=== PATIENT | female | born 1950 | race Caucasian/White ===

== ENCOUNTER 2017-01-18 11:24 | Emergency (ER) | payer OTHER ==
[~2017-01-18] VITALS: Ht 157.5 cm; Wt 50.5 kg
[2017-01-18 11:28] VITALS: Ht 157.5 cm; Wt 50.5 kg
[2017-01-18] MEDS ORDERED: SOD CHLORIDE 0.9% 1,000 ML IV STA (12:49)
[2017-01-18] MEDS ORDERED: ONDANSETRON 4 MG INJ IV STA (12:49)
[2017-01-18 12:54] LABS: WHITE BLOOD COUNT 6.3 10^3/ul (4.8-10.8)
[2017-01-18 12:55] LABS: BASOPHILS % 0.3 % (0.0-2.0); EOSINOPHILS % 0.5 % (0.0-7.0); HEMATOCRIT 42.2 % (37.0-47.0); HEMOGLOBIN 13.8 g/dl (12.0-16.0); LYMPHOCYTES # 1.7 10^3/ul (0.8-2.9); LYMPHOCYTES % 27.5 % (15.0-51.0); MEAN CORPUSCULAR HEMOGLOBIN 28.4 pg (29.0-33.0); MEAN CORPUSCULAR HGB CONC 32.7 g/dl (32.0-37.0); MEAN CORPUSCULAR VOLUME 86.8 fl (82.0-101.0); MEAN PLATELET VOLUME 9.2 fl (7.4-10.4); MONOCYTE # 0.5 10^3/ul (0.3-0.9); MONOCYTES % 7.7 % (0.0-11.0); NEUTROPHILS % 63.5 % (39.0-77.0); PLATELET COUNT 364 10^3/UL (140-415); RED BLOOD COUNT 4.86 10^6/ul (4.20-5.40); RED CELL DISTRIBUTION WIDTH 12.5 % (11.5-14.5)
[2017-01-18] MEDS ORDERED: metroNIDAZOLE (5 MG/ML) IV SYG IV* ONE (13:00)
[2017-01-18 13:10] LABS: ANION GAP 19 (8-16); BLOOD UREA NITROGEN 17 mg/dl (7-20); CALCIUM 9.8 mg/dl (8.4-10.2); CARBON DIOXIDE 29 mmol/L (21-31); CHLORIDE 100 mmol/L (97-110); CREATININE 0.65 mg/dl (0.44-1.00); GLUCOSE 92 mg/dl (70-220); POTASSIUM 3.8 mmol/L (3.5-5.1); SODIUM 144 mmol/L (135-144)
[2017-01-18 13:13] LABS: INR 1.01; PROTIME 13.3 Sec (12.2-14.2)
[2017-01-18 13:14] LABS: PARTIAL THROMBOPLASTIN TIME 28.7 Sec (25.0-35.0)
[2017-01-18 13:23] LABS: TROPONIN-I < 0.012 ng/ml (0.00-0.12)
--- NOTE | 2017-01-18 13:38 | RADRPT ---
PROCEDURE: XR Chest 1 View. CLINICAL INDICATION: Shortness of breath, possible stroke. TECHNIQUE: AP view of the chest was obtained. COMPARISON: None. FINDINGS: The heart size is within normal limits. Calcified atherosclerosis is noted in the aorta. The lungs are hyperexpanded. No consolidations are identified. No pneumothorax is seen. Osseous structures a re intact. IMPRESSION: Calcified atherosclerosis in the aorta. Hyperexpanded, clear lungs. RPTAT: AA .Kin Curry MD, MD Date Time Electronically viewed and signed by .Kin Curry MD, on 01/18/2017 13:38 .P/
--- NOTE | 2017-01-18 13:43 | RADRPT ---
PROCEDURE: CT brain without contrast CLINICAL INDICATION: Possible stroke, dizziness TECHNIQUE: CT of the brain without contrast performed on a multidetector CT scanner, with multiplan ar reformats. One or more of the following dose reduction techniques were used: Automated exposure control, adjustment in mA and / or kV according to patient size, use of iterative reconstructive phani hnique. CTDIvol = 45 mGy; DLP = 630 mGy-cm. COMPARISON: None available FINDINGS: No acute intracranial hemorrhage is identified. No extra-axial fluid collection is seen. There is no mass effect. No midline shift is identified. The ventricles and sulci are within normal limits for size and configuration. There are mild areas of hypodensity in the periventricular - deep white matter which are nonspecific but suggestive of chronic small vessel ischemic changes. Bradford-white differentiation appears preser andrei. Atherosclerotic calcifications of the intracranial internal carotid arteries are noted. Calvarium and skull base are intact. There is left frontal, extensive left ethmoid air cell opacifi cation and partial opacification of the visualized left maxillary sinus.. IMPRESSION: 1. No acute intracranial pathology identified. Consider further evaluation with MRI as clinically indicated. 2. Mild chronic small vessel ischemic changes. RPTAT: VV .New Garibay MD, Date Time Electronically viewed and signed by .New Garibay MD, on 01/18/2017 13:42 .O/
[2017-01-18 14:00] VITALS: BP 123/68; PULSE 79; RESP 20; TEMP 98.3
[2017-01-18] MEDS ORDERED: MECL12.574 PO (14:07)
[2017-01-18 14:11] LABS: ADD UMIC NO; UR ASCORBIC ACID NEGATIVE (NEGATIVE); UR BILIRUBIN (Dip) NEGATIVE (NEGATIVE); UR BLOOD (Dip) NEGATIVE (NEGATIVE); UR CLARITY CLEAR (CLEAR); UR COLOR YELLOW (YELLOW); UR GLUCOSE (Dip) NEGATIVE (NEGATIVE); UR KETONES (Dip) 1+ mg/dL (NEGATIVE); UR LEUKOCYTE ESTERASE (Dip) NEGATIVE Leu/ul (NEGATIVE); UR NITRITE (Dip) NEGATIVE (NEGATIVE); UR SPECIFIC GRAVITY (Dip) 1.016 (1.003-1.030); UR TOTAL PROTEIN (Dip) NEGATIVE (NEGATIVE); UR UROBILINOGEN (Dip) NEGATIVE (NEGATIVE)
--- NOTE | 2017-01-18 14:11 | ERD ---
ER Documentation Chief Complaint Date/Time DATE: 01/18/17 TIME: 14:10 Chief Complaint Complains of dizziness since last evening ROS All systems reviewed and are negative except as per history of present illness. Medications Home Meds Active Scripts Meclizine Hcl* (Antivert*) 12.5 Mg Tab, 25 MG PO Q6H Y for DIZZINESS, #20 TAB Prov:LAURIE MCFADDEN MD 01/18/17 Allergies Allergies: Coded Allergies: No Known Allergy (Unverified , 02/25/14) PMhx/Soc Medical and Surgical Hx: pt denies Medical Hx Hx Psychiatric Problems: No Hx Miscellaneous Medical Probl: No Hx Alcohol Use: No Hx Substance Use: No Hx Tobacco Use: No Smoking Status: Never smoker Physical Exam Vitals Vital Signs Date Time Temp Pulse Resp B/P Pulse Ox O2 Delivery O2 Flow Rate FiO2 01/18/17 14:00 98.3 79 20 123/68 99 Room Air 01/18/17 13:10 Nasal Cannula 01/18/17 11:28 98.3 77 20 133/65 98 Physical Exam Const: [] Head: Atraumatic Eyes: Normal Conjunctiva ENT: Normal External Ears, Nose and Mouth. Neck: Full range of motion..~ No meningismus. Resp: Clear to auscultation bilaterally Cardio: Regular rate and rhythm, no murmurs Abd: Soft, non tender, non distended. Normal bowel sounds Skin: No petechiae or rashes Back: No midline or flank tenderness Ext: No cyanosis, or edema Neur: Awake and alert Psych: Normal Mood and Affect Result Diagram: 01/18/17 1240 01/18/17 1240 Results 24 hrs Laboratory Tests Test 01/18/17 12:40 White Blood Count 6.310^3/ul Red Blood Count 4.8610^6/ul Hemoglobin 13.8g/dl Hematocrit 42.2% Mean Corpuscular Volume 86.8fl Mean Corpuscular Hemoglobin 28.4pg Mean Corpuscular Hemoglobin Concent 32.7g/dl Red Cell Distribution Width 12.5% Platelet Count 79284^3/UL Mean Platelet Volume 9.2fl Neutrophils % 63.5% Lymphocytes % 27.5% Monocytes % 7.7% Eosinophils % 0.5% Basophils % 0.3% Nucleated Red Blood Cells % 0.0/100WBC Neutrophils # 4.010^3/ul Lymphocytes # 1.710^3/ul Monocytes # 0.510^3/ul Eosinophils # 0.010^3/ul Basophils # 0.010^3/ul Nucleated Red Blood Cells # 0.010^3/ul Prothrombin Time 13.3Sec Prothrombin Time Ratio 1.0 INR International Normalized Ratio 1.01 Activated Partial Thromboplast Time 28.7Sec Sodium Level 144mmol/L Potassium Level 3.8mmol/L Chloride Level 100mmol/L Carbon Dioxide Level 29mmol/L Anion Gap 19 Blood Urea Nitrogen 17mg/dl Creatinine 0.65mg/dl Glucose Level 92mg/dl Hemoglobin A1c 5.6% Calcium Level 9.8mg/dl Troponin I < 0.012ng/ml Current Medications Medications (Trade) Dose Ordered Sig/Sixto Route PRN Reason Start Time Stop Time Status Last Admin Dose Admin Metronidazole 758 mg 758 mg ONCE ONCE IV* 01/18/17 13:00 01/18/17 13:00 DC Sodium Chloride (NS) 1,000 ml @ 1,000 mls/hr Q1H STAT IV 01/18/17 12:49 01/18/17 13:48 DC 01/18/17 13:40 Ondansetron HCl (Zofran Inj) 4 mg ONCE STAT IV 01/18/17 12:49 01/18/17 12:50 DC 01/18/17 13:40 Procedures/MDM EKG read by me: Rate/Rhythm: Regular rate and rhythm at a rate of 75 Intervals: Normal Impression: No evidence of ischemia or arrhythmia CT brain negative per radiology. Departure Diagnosis: Primary Impression: Dizziness Condition: Fair Patient Instructions: Dizziness, Unk Cause Referrals: MARCO ANTONIO NUGENT (PCP) Additional Instructions: Llame al doctor MAANA y ingrid jena [place] PARA DENTRO DE 1-2 LARIOS.Dgale a la secretaria que nosotros le instruimos hacer esta [place].Avise o llame si pinedo condicin se empeora antes de la [place]. Regresa aqui si peor o no mejor. LAURIE MCFADDEN MD Jan 18, 2017 14:10
[2017-01-18 14:31] LABS: BARBITURATES Negative (NEGATIVE); BENZODIAZEPINES Negative (NEGATIVE); CANNABINOIDS Negative (NEGATIVE); COCAINE Negative (NEGATIVE); OPIATES Negative (NEGATIVE)
== END 2017-01-18 14:25 | disposition home or self-care (01) ==
LOC: E/R 11:24
DX: R42 Dizziness and giddiness (principal); R06.02 Shortness of breath
CPT/HCPCS: 36415; 70450; 71010; 80048; 80307; 81003; 83036; 84484; 85025; 85610; 85730; 99285; J2405; J7030; 93005